=== PATIENT | female | born 1995 | race Caucasian/White ===

== ENCOUNTER 2021-09-10 03:15 | Emergency (ER) | payer OTHER ==
[~2021-09-10] VITALS: Ht 177.8 cm; Wt 61.2 kg
--- NOTE | 2021-09-10 03:20 | NUR ---
PT BIBSELF C/O RT SHOULDER PAIN. PT AAOX4 BREATHING EVENLY AND UNLABORED. PT STATES THAT SHE FELT THE PAIN WHEN SHE WAS TYPING ON THE COMPUTER, DENIES ANY TRAUMA. PT ATTACHED TO MONITOR AND POX. MD AT BEDSIDE. PT GIVEN BLANKET AND CALL LIGHT WITHIN REACH
--- NOTE | 2021-09-10 03:38 | NUR ---
XRAY AT BEDSIDE
--- NOTE | 2021-09-10 04:04 | NUR ---
back from ct
--- NOTE | 2021-09-10 04:27 | NUR ---
Patient discharged to home in stable condition. Written and verbal after care instructions given. Patient verbalizes understanding of instruction. Pt ambulatory with a steady gait.
[2021-09-10 04:54] VITALS: BP 125/73
== END 2021-09-10 04:28 | disposition home or self-care (01) ==
LOC: ER 03:18
DX: M25.511 Pain in right shoulder (principal); Z88.2 Allergy status to sulfonamides; Z88.1 Allergy status to other antibiotic agents
CPT/HCPCS: 73030-TC; 73200-TC